=== PATIENT | female | born 1960 | race Caucasian/White ===

== ENCOUNTER 2020-04-06 11:37 | Emergency (ER) | payer BC ==
[2020-04-06 12:19] VITALS: PULSE 100; BMI 25.7
[2020-04-06 13:05] LABS: HEMATOCRIT 41.6 % (32.4-45.2); HEMOGLOBIN 14.3 GM/dL (10.7-15.3); MCHC 34.4 g/dl (32.0-36.0); MEAN PLT VOLUME 9.3 fl (7.5-11.1); PLATELET COUNT 259 K/MM3 (134-434); RBC 4.34 M/mm3 (3.60-5.2); RDW 13.4 % (11.6-15.6); WHITE BLOOD COUNT 3.9 K/mm3 (4.0-10.0)
[2020-04-06] MEDS ORDERED: BAMLANIVIMAB 700 MG in SODIUM CHLORIDE 250 ML IVPB ONE (13:12)
[2020-04-06 13:31] LABS: CALCIUM 8.6 mg/dL (8.5-10.1)
[2020-04-06 13:35] LABS: CREATININE 0.8 mg/dL (0.55-1.3)
[2020-04-06 16:49] VITALS: BP 148/93; TEMP 99.3
== END 2020-04-06 17:37 | disposition home or self-care (01) ==
LOC: JCOVINFU 11:37 → JER 11:37 → JCOVINFU 17:37
DX: U07.1 COVID-19 (principal)
CPT/HCPCS: 36415; 80048; 85027; 99284-25; M0239; Q0239